=== PATIENT | female | born 1995 | race Caucasian/White ===

== ENCOUNTER 2021-03-31 16:25 | Inpatient (IN) | payer OTHER ==
[~2021-03-31] VITALS: Ht 170.2 cm; Wt 98.0 kg
[2021-03-31 17:07] LABS: HEMOGLOBIN 12.7 gm/dl (12.3-15.3); RED BLOOD COUNT 4.22 M/UL (4.00-5.10); WHITE BLOOD COUNT 16.3 K/UL (4.5-11.0)
[2021-03-31] MEDS ORDERED: PRENATAL VITAM1 EAC5 PO (17:39)
[2021-03-31] MEDS ORDERED: FERROUS SULFAT325 M2 PO (17:40)
[2021-04-01] MEDS ORDERED: HYDROCODON-ACE1 EAC4 PO (19:55)
[2021-04-01] MEDS ORDERED: IBUPROFEN600 MG PO (19:55)
[2021-04-01] MEDS ORDERED: DOCUSATE SODIU100 MG PO (19:55)
[2021-04-02 07:30] LABS: HEMOGLOBIN 10.4 gm/dl (12.3-15.3)
== END 2021-04-03 13:57 | disposition home or self-care (01) | DRG 807 ==
LOC: GENOP 16:25 → OB 17:03
PROVIDERS: Obstetrics & Gynecology; ADMIT Obstetrics & Gynecology
PROC: 10E0XZZ Delivery of Products of Conception, External Approach (ICD-10-PCS; principal; 2021-03-31)
PROC: 3E033VJ Introduction of Other Hormone into Peripheral Vein, Percutaneous Approach (ICD-10-PCS; 2021-03-31)
PROC: 10907ZC Drainage of Amniotic Fluid, Therapeutic from Products of Conception, Via Natural or Artificial Opening (ICD-10-PCS; 2021-03-31)
PROC: 0U7C7ZZ Dilation of Cervix, Via Natural or Artificial Opening (ICD-10-PCS; 2021-03-31)
PROC: 0HQ9XZZ Repair Perineum Skin, External Approach (ICD-10-PCS; 2021-03-31)
PROC: 4A1HXCZ Monitoring of Products of Conception, Cardiac Rate, External Approach (ICD-10-PCS; 2021-03-31)
DX: O70.0 First degree perineal laceration during delivery (principal); Z37.0 Single live birth; O99.824 Streptococcus B carrier state complicating childbirth; Z3A.39 39 weeks gestation of pregnancy; Z20.822 Contact with and (suspected) exposure to COVID-19; O62.2 Other uterine inertia
CPT/HCPCS: 36415; 51702; 81001; 82800; 85014; 85018; 85025; J2210; J2405; J2590; U0003